=== PATIENT | male | born 1965 | race Caucasian/White ===

== ENCOUNTER 2024-04-08 21:25 | Emergency (ER) | payer OTHER, SELFPAY ==
[2024-04-08 21:29] VITALS: BP 159/106; PULSE 70; RESP 18; TEMP 36.6; O2SAT 99
--- NOTE | 2024-04-08 21:30 | DI.CT_ITS ---
Exam(s) CT HEAD WO EXAM: CT HEAD WO CLINICAL HISTORY: fall, head strike, no thinners. TECHNIQUE: Imaging Protocol: Axial computed tomography images with coronal and sagittal reformatted images were created and reviewed COMPARISON: No exams were available for comparison FINDINGS: There are no skull fractures. There is no fluid in the visualized paranasal sinuses. There is no evidence of intracranial hemorrhage, mass effect, or shift of midline structures. There are no extra-axial fluid collections. The ventricles are not enlarged or shifted and there is no blo od within the ventricular system nor within the basal cisterns. IMPRESSION: No acute intracranial findings on this noninfused CT scan of the brain. RADIATION DOSE DELIVERED: 902.02mGy.cm Total DLP DATA REPOSITORY: All CT scans at this facility are submitted to the National Radiology Data Registry (NRDR) Dose Index Registry (DIR) with the [employer] ([employer]). RADIATION OPTIMIZATION: All CT scans at this facility use at least one of these dose optimization te chniques: automated exposure control; mA and/or kV adjustment per patient size (includes targeted exa ms where dose is matched to clinical indication); or iterative reconstruction.
--- NOTE | 2024-04-08 21:59 | ED.GENADUL_ITS ---
Discharge Plan Disposition Patient Disposition: Home Condition: Stable Discharge Details Clinical Impression: Laceration of scalp, Fall Primary Care Provider: None,None ED Provider: Ewelina Weavre Home Meds and New Rx's Prescriptions: No Action finasteride 5 mg tablet 5 mg PO DAILY Discharge Instructions Instructions: Laceration Repair With Stitches ED Additional Instructions: You were seen in the emergency department today for evaluation after a fall on the ice. In our department a full physical examination performed, had a CT scan that did not show any bleeding in your brain or skull fractures, and had stitches placed to repair the laceration. These need to be removed in 7 to 10 days. It is okay to shower and let soap and water run over the area, but please do not soak or scrub. Pat dry and use topical antibiotic ointment and bandage to keep the area protected. You can use Tylenol and ibuprofen as needed for management of pain. Please follow-up with your primary care provider in the next few days to discuss this visit and any symptoms that change, worsen, or persist. Thank you for allowing us to be part of your care. HPI General Mode of arrival: ambulatory . Date/Time Provider Initiated Documentation: 04/08/24 21:26 . Limitations to Documentation: no limitations . Information obtained by: patient, family and old records reviewed . HPI Narra tive: HPI: This is a 59-year-old male patient without significant past medical history who is presenting for evaluation after a fall. The patient reports that he was walking his dogs and slipped on the ice, falling backwards and striking his posterior head. He did not lose consciousness, was able to get up and ambulate after this event, states that he has sustained a laceration to the back of his head but otherwise does not believe he sustained injury. He is not experiencing any dizziness, vision changes, nausea or vomiting. Last tetanus shot reported 5 years ago. This was a mechanical fall and the patient does not report any preceding medical issues such as syncope, chest pain, etc. Exam: Gen: Awake and alert, in no apparent distress HEENT: Non-icteric sclera, PERRL, scalp with a 2 cm linear laceration, with oozing bleeding responsive to direct pressure. Neck: Supple, no C-spine tenderness or step-offs Lungs: No apparent respiratory distress, normal respiratory effort. CV: Appears well perfused Abdomen: Non-distended MSK: Moves 4 extremities without apparent limitation in ROM. No T or L-spine tenderness Skin: Visualized skin without rashes, cyanosis. Neuro: Normal Gait, no obvious focal deficits or facial asymmetry. Speaks in full, clear sentences. Psych: Appropriate for situation. MDM: This is a 59-year-old male patient presenting for evaluation after a fall with head strike. My differential includes laceration, contusion, consider skull fracture, intracranial hemorrhage, though the patient is reassuringly without neurodeficits, and does not take blood thinning medications. He has no evidence on my physical examination for spinal injury, and this mechanical fall does not increase my concern for condition such as syncope, arrhythmia, seizure, stroke. Laceration was repaired as noted below, and we had a shared decision-making conversation regarding CT imaging for evaluation of intracranial injury. Ultimately, the patient and family are desiring to proceed with this imaging study. ED Course: CT scan independently interpreted by myself, showing no intracranial hemorrhage or skull fracture. At this time, the patient has had a full medical evaluation and is safe for discharge to home. They are hemodynamically stable, ambulatory, and tolerating PO. They are understanding of the follow-up plan and return precautions. They left our facility without incident. Ewelina Weaver MD Related Data Home Medications ?Medication ?Instructions ?Recorded ?Confirmed finasteride 5 mg tablet 5 mg PO DAILY 04/08/24 04/08/24 Allergies Allergy/AdvReac Type Severity Reaction Status Date / Time No Known Allergies Allergy Unverified 04/08/24 21:37 General Stated Complaint: Laceration MORENA: 3 Course Vital Signs Vital signs: Vital Signs Temperature 36.6 C 04/08/24 21:29 Pulse 70 04/08/24 21:29 Respiratory Rate 18 04/08/24 21:29 Blood Pressure 159/106 H 04/08/24 21:29 Pulse Oximetry 99 04/08/24 21:29 Temperature 36.6 C 04/08/24 21:29 Temperature Source Tympanic 04/08/24 21:29 Pulse 70 04/08/24 21:29 Respiratory Rate 18 04/08/24 21:29 Blood Pressure 159/106 H 04/08/24 21:29 Pulse Oximetry 99 04/08/24 21:29 Oxygen Delivery Method Room Air 04/08/24 21:29 Oxygen Flow Rate 0 04/08/24 21:29 Pain Level 1 04/08/24 21:29 Procedure Laceration Laceration 1: Date of Procedure: 04/08/24 Time of procedure: 21:59 Provider that performed the procedure: Ewelina Weaver Patient Consented: Verbally Site: scalp Description: linear Depth: simple, single layer Local anesthetic: Lidocaine 2% and with Epi Amount of anesthesia used (mL): 3 Pre-repair:: wound explored, irrigated extensively and deep structures intact Skin layer closed with: nylon Size (cm): 4-0 Number of sutures:: 6 Technique: simple, interrupted Medical Decision Making Quality:SDOH Health Related Social Needs: No Data to Display PFSH All Active Problems (Updated 04/08/24 @ 22:24 by Ewelina Weaver MD) Fall (Acute) Laceration of scalp (Acute) Social History Smoking/Tobacco Use Status: Never Smoking risk assessment performed?: Yes Alcohol Intake: never Substance use type: does not use
[2024-04-08 22:19] VITALS: BP 135/93; PULSE 68; RESP 16; O2SAT 96
--- NOTE | 2024-04-08 22:21 | DI.VRAD_ITS ---
PROCEDURE INFORMATION: Exam: CT Head Without Contrast Exam date and time: 04/08/2024 10:04 PM Age: 59 years old Clinical indication: Other: Fall, head strike, no thinners TECHNIQUE: Imaging protocol: Computed tomography of the head without contrast. COMPARISON: No relevant prior studies available. FINDINGS: Brain: No acute intracranial hemorrhage, mass-effect, midline shift, or extra-axial collection is seen. The plata white matter differentiation appears preserved. Cerebral ventricles: The ventricular system and basilar cisterns appear appropriate in size and configuration. Paranasal sinuses: There is mild mucoperiosteal thickening in the paranasal sinuses but no air-fluid levels. Mastoid air cells: The mastoid air cells appear well-aerated. Auditory system: The middle ear cavities appear clear. Bones: The bony calvarium appears intact. No depressed skull fracture is seen. Soft tissues: There is a small posterior midline scalp contusion with soft tissue gas suggesting an associated scalp laceration. IMPRESSION: No acute intracranial hemorrhage or depressed skull fracture. Dictated and Authenticated by: Grover De La Cruz MD. Ordering:NAZ Hanna MD
[2024-04-08 22:31] VITALS: PULSE 62; RESP 16; O2SAT 98
== END 2024-04-08 22:31 | disposition home or self-care (01) ==
PROVIDERS: Emergency Provider Emergency Medicine
DX: S01.01XA Laceration without foreign body of scalp, initial encounter (principal); W00.0XXA Fall on same level due to ice and snow, initial encounter
CPT/HCPCS: 12001; 99284; 70450; 99283; J2004